=== PATIENT | female | born 1975 | race Caucasian/White ===

== ENCOUNTER 2016-08-18 20:48 | Emergency (ER) | payer OTHER ==
[~2016-08-18] VITALS: Ht 149.9 cm; Wt 59.5 kg
[2016-08-18 20:53] VITALS: Ht 149.9 cm; Wt 59.5 kg
[2016-08-18 21:29] LABS: URINE BLOOD (Dip) POC 3+ (NEGATIVE)
[2016-08-18 22:14] LABS: UR RBC > 182 /HPF (0-5); UR SQUAMOUS EPITHELIAL CELL MANY /HPF (FEW)
[2016-08-18 22:32] LABS: ADD UMIC YES; UR ASCORBIC ACID 40 mg/dL (NEGATIVE); UR BILIRUBIN (Dip) NEGATIVE (NEGATIVE); UR BLOOD (Dip) 3+ mg/dL (NEGATIVE); UR CLARITY TURBID (CLEAR); UR COLOR AMBER (YELLOW); UR GLUCOSE (Dip) 1+ mg/dL (NEGATIVE); UR KETONES (Dip) TRACE mg/dL (NEGATIVE); UR LEUKOCYTE ESTERASE (Dip) NEGATIVE Leu/ul (NEGATIVE); UR MUCUS MANY /HPF (NONE SEEN); UR NITRITE (Dip) NEGATIVE (NEGATIVE); UR SPECIFIC GRAVITY (Dip) 1.027 (1.003-1.030); UR TOTAL PROTEIN (Dip) 2+ mg/dl (NEGATIVE); UR UROBILINOGEN (Dip) NEGATIVE (NEGATIVE)
[2016-08-18 23:09] LABS: ADD SCAN DIFF NO
[2016-08-18 23:11] LABS: BASOPHILS % 0.5 % (0.0-2.0); EOSINOPHILS # 0.8 10^3/ul (0.0-0.5); EOSINOPHILS % 10.6 % (0.0-7.0); HEMATOCRIT 28.4 % (37.0-47.0); HEMOGLOBIN 8.9 g/dl (12.0-16.0); LYMPHOCYTES # 2.6 10^3/ul (0.8-2.9); LYMPHOCYTES % 33.2 % (15.0-51.0); MEAN CORPUSCULAR HEMOGLOBIN 28.3 pg (29.0-33.0); MEAN CORPUSCULAR HGB CONC 31.3 g/dl (32.0-37.0); MEAN CORPUSCULAR VOLUME 90.4 fl (82.0-101.0); MEAN PLATELET VOLUME 10.4 fl (7.4-10.4); MONOCYTE # 0.4 10^3/ul (0.3-0.9); MONOCYTES % 5.5 % (0.0-11.0); NEUTROPHIL # 3.9 10^3/ul (1.6-7.5); NEUTROPHILS % 49.9 % (39.0-77.0); PLATELET COUNT 374 10^3/UL (140-415); RED BLOOD COUNT 3.14 10^6/ul (4.20-5.40); RED CELL DISTRIBUTION WIDTH 15.1 % (11.5-14.5); WHITE BLOOD COUNT 7.8 10^3/ul (4.8-10.8)
--- NOTE | 2016-08-18 23:20 | RADRPT ---
PROCEDURE: US Pelvis. CLINICAL INDICATION: Vaginal bleeding TECHNIQUE: Multiple sonographic images of the pelvis were obtained utilizing a transabdominal and endovaginal technique. The images were reviewed on a PACS workstation. COMPARISON: None available FINDINGS: Uterus: Approximately 5 uterine leiomyomata are present. In the posterior uterine fundus of the int ramural leiomyoma measures 2.9 x 2.5 x 2.4 cm. In the anterior intrauterine corpus as the intramura l lesion measures 2.3 x 2.3 x 1.7 cm. In the posterior uterine corpus fibroid is approximately 2.1 x 1.6 x 1.6 cm. In the distal anterior lower uterine segment the leiomyoma appears intramural measu ring all 1.8 x 2.1 x 1.6 cm. The fifth fibroid is in the anterior left mid uterine corpus, submucos al and measuring 1.9 x 1.7 x 1.7 cm. Overall uterine size is estimated at 9.8 x 7.4 x 5.5 cm. Cervix: No abnormalities of significance are seen. Endometrium: Normal in thickness; 5.3 mm. Right ovary / adnexa: Normal in size estimated at 2.2 x 1.8 x 1.2 cm. No evidence for masses, norm al blood flow on Doppler interrogation. Left ovary/adnexa: Normal in size estimated at 2 x 2.3 x 1.3 cm. No evidence for solid masses, norm al blood flow on Doppler interrogation. Cul-de-sac: No evidence of free fluid. RPTAT:HJJR IMPRESSION: 1. Multiple uterine leiomyomata ranging in size from 1.8 cm up to 2.9 cm both intramural and submuco kala. 2. Normal endometrial thickness. 3. Sonographically normal ovaries and adnexa. Physician Ashwin Date Time Electronically viewed and signed by Physician Ashwin on 08/18/2016 23:19 JR/
[2016-08-18] MEDS ORDERED: PHEN-537 PO (23:39)
[2016-08-18] MEDS ORDERED: CIPR500T4 PO (23:39)
[2016-08-18] MEDS ORDERED: IBUP400T22 PO (23:40)
[2016-08-18 23:41] LABS: CALCIUM 8.9 mg/dl (8.4-10.2); CREATININE 0.67 mg/dl (0.44-1.00); POTASSIUM 3.8 mmol/L (3.5-5.1)
[2016-08-19 00:03] VITALS: BP 126/79; PULSE 74; RESP 14; TEMP 98.3
--- NOTE | 2016-08-19 00:19 | ERA ---
ER Documentation Chief Complaint Date/Time DATE: 08/19/16 TIME: 00:08 Chief Complaint vaginal bleeding x 1 month HPI This is a 41-year-old female who presents with a chief complaint of vaginal bleeding and lower abdominal pain. Patient's symptoms have persisted since the onset of her. 2 weeks ago. Patient describes the pain as pressure-like. Describes the bleeding as without chunks and worse when she urinates. Patient denies dysuria, vaginal discharge, foul odor, nausea, vomiting, diarrhea, constipation, flank pain, known , back pain, or similar symptoms in the past. ROS All systems reviewed and are negative except as per history of present illness. Medications Home Meds Active Scripts Ibuprofen* (Motrin*) 400 Mg Tab, 400 MG PO Q6, #30 TAB Prov:ILA CHICAS PA-C 08/18/16 Phenazopyridine Hcl* (Pyridium*) 100 Mg Tab, 100 MG PO TID Y for URINARY PAIN, # 8 TAB Prov:ILA CHICAS PA-C 08/18/16 Ciprofloxacin Hcl* (Ciprofloxacin Hcl*) 500 Mg Tablet, 500 MG PO BID for 14 Days , TAB Prov:ILA CHICAS PA-C 08/18/16 PMhx/Soc Medical and Surgical Hx: pt denies Medical Hx, pt denies Surgical Hx Hx Alcohol Use: No Hx Substance Use: No Hx Tobacco Use: No Smoking Status: Never smoker Physical Exam Vitals Vital Signs Date Time Temp Pulse Resp B/P Pulse Ox O2 Delivery O2 Flow Rate FiO2 08/19/16 00:03 98.3 74 14 126/79 100 Room Air 08/18/16 20:53 99.5 87 20 141/85 100 Physical Exam Const: Healthy-appearing. Well-nourished. Overweight. No acute distress. Head: Normocephalic, Atraumatic. No sinus tenderness. Eyes: Non-injected; No scleral erythema, discharge or foreign body. EOMI and YESI bilaterally. Ears: Normal External Ears, EACs clear, TM normal bilaterally without erythema. Nose: Normal nose without discharge, septal deviation, or sinus tenderness. Oral: No oral edema visualized. Mucous membranes moist and pink. Neck: No cervical lymphadenopathy, masses or goiter palpated. Full range of motion. Supple. Trachea midline. ~ No meningismus. Pulm: Good air movement in upper and lower respiratory tracts. No dyspnea, stridor, tripoding or drooling. Clear to auscultation bilaterally. Percussion unremarkable in all lung mehta bilaterally. Cardio: Regular rate and rhythm; No murmurs, gallops or rubs auscultated. No JVD grossly observed. Radial and posterior tibial pulses 2+ bilaterally. No cyanosis. Capillary refill less than 2 seconds. Abd: Mild suprapubic tenderness. Soft, non tender, non distended. No guarding, masses. Normal bowel sounds. No McBurney's point tenderness. MS: Normal motor strength, normal tone with gross examination. Skin: No petechiae or rashes. No ulcer, induration, jaundice. Good turgor. Back: No midline, flank or CVA tenderness. Ext: No cyanosis, or edema. Normal movement of all extremities grossly observed. Neur: Awake, alert and oriented x3. Neurovascularly intact bilaterally. Psych: Active and alert. Normal Mood and Affect. Oriented x3. Result Diagram: 08/18/16223908/18/160 Results 24 hrs Laboratory Tests Test 08/18/16 21:21 08/18/16 21:33 08/18/16 22:40 Urine Color KATY Urine Clarity TURBID Urine pH 6.0 Urine Specific [place] 1.027 Urine Ketones TRACEmg/dL Urine Nitrite NEGATIVEmg/dL Urine Bilirubin NEGATIVEmg/dL Urine Urobilinogen NEGATIVEmg/dL Urine Leukocyte Esterase NEGATIVELeu/ul Urine Microscopic RBC > 182/HPF Urine Microscopic WBC 79/HPF Urine Squamous Epithelial Cells MANY/HPF Urine Calcium Oxalate Crystals MANY/HPF Urine Mucus MANY/HPF Urine Hemoglobin 3+mg/dL Urine Glucose 1+mg/dL Urine Total Protein 2+mg/dl Bedside Urine pH (LAB) 5.0 Bedside Urine Protein (LAB) 3+ Bedside Urine Glucose (UA) Negative Bedside Urine Ketones (LAB) Trace Bedside Urine Blood 3+ Bedside Urine Nitrite (LAB) Positive Bedside Urine Leukocyte Esterase (L 3+ White Blood Count 7.810^3/ul Red Blood Count 3.1410^6/ul Hemoglobin 8.9g/dl Hematocrit 28.4% Mean Corpuscular Volume 90.4fl Mean Corpuscular Hemoglobin 28.3pg Mean Corpuscular Hemoglobin Concent 31.3g/dl Red Cell Distribution Width 15.1% Platelet Count 19065^3/UL Mean Platelet Volume 10.4fl Neutrophils % 49.9% Lymphocytes % 33.2% Monocytes % 5.5% Eosinophils % 10.6% Basophils % 0.5% Nucleated Red Blood Cells % 0.0/100WBC Neutrophils # 3.910^3/ul Lymphocytes # 2.610^3/ul Monocytes # 0.410^3/ul Eosinophils # 0.810^3/ul Basophils # 0.010^3/ul Nucleated Red Blood Cells # 0.010^3/ul Sodium Level 142mmol/L Potassium Level 3.8mmol/L Chloride Level 110mmol/L Carbon Dioxide Level 24mmol/L Anion Gap 12 Blood Urea Nitrogen 12mg/dl Creatinine 0.67mg/dl Glucose Level 104mg/dl Calcium Level 8.9mg/dl Procedures/MDM Patient was evaluated and worked up for abdominal discomfort. Patient denied any pain medications. The workup included CBC, BMP, urinalysis, test, lipase, and ultrasound. The ultrasound was read by the radiologist given the following impression: IMPRESSION: 1. Multiple uterine leiomyomata ranging in size from 1.8 cm up to 2.9 cm both intramural and submucosal. 2. Normal endometrial thickness. 3. Sonographically normal ovaries and adnexa. Urinalysis was remarkable for the following: Turbid, 3+ blood, 3+ nitrites, 3+ leukocyte esterase, 3+ calcium oxalate crystals, 79 microscopic white blood cell count. The current most likely diagnosis is hemorrhagic cystitis, calcium oxalate nephrolithiasis. The treatment plan will thus include outpatient antibiotics with Cipro twice daily 14 days and Flomax for facilitation of stone passage. I have reviewed these findings with Dr. Vasquez and he agrees with the assessment and plan. At this time I do not suspect appendicitis, ectopic , ovarian cyst, PID, intestinal ischemia, peritonitis, intestinal obstruction, perforated viscus, acute pancreatitis, cholelithiasis, cholangitis, GI mechanical obstruction, or AAA. On repeat exam, the abdominal exam remains unchanged. The patient is well appearing, and tolerates PO. I have spoke with the patient regarding their condition and future management. They have verbally responded that they understand their status and treatment plan. The patients vitals are stable, and their current condition is appropriate for discharge. The patient will be given discharge instructions with return precautions. Departure Diagnosis: Primary Impression: Urinary tract infection Qualified Code: N39.0 - Urinary tract infection with hematuria, site unspecified Condition: Stable Patient Instructions: Understanding Urinary Tract Infections (UTIs) Referrals: [facility], [facility] YOU HAVE RECEIVED A MEDICAL SCREENING EXAM AND THE RESULTS INDICATE THAT YOU DO NOT HAVE A CONDITION THAT REQUIRES URGENT TREATMENT IN THE EMERGENCY DEPARTMENT. FURTHER EVALUATION AND TREATMENT OF YOUR CONDITION CAN WAIT UNTIL YOU ARE SEEN IN YOUR DOCTORS OFFICE WITHIN THE NEXT 1-2 DAYS. IT IS YOUR RESPONSIBILITY TO MAKE AN APPOINTMENT FOR FOLOW-UP CARE. IF YOU HAVE A PRIMARY DOCTOR --you should call your primary doctor and schedule an appointment IF YOU DO NOT HAVE A PRIMARY DOCTOR YOU CAN CALL OUR PHYSICIAN REFERRAL HOTLINE AT IF YOU CAN NOT AFFORD TO SEE A PHYSICIAN YOU CAN CHOSE FROM THE FOLLOWING [facility] [address] [facility] [address] [facility] [address] [facility] [address] [facility] [address] [facility]. [facility] [address] [facility] [facility] YOU HAVE RECEIVED A MEDICAL SCREENING EXAM AND THE RESULTS INDICATE THAT YOU DO NOT HAVE A CONDITION THAT REQUIRES URGENT TREATMENT IN THE EMERGENCY DEPARTMENT. FURTHER EVALUATION AND TREATMENT OF YOUR CONDITION CAN WAIT UNTIL YOU ARE SEEN IN YOUR DOCTORS OFFICE WITHIN THE NEXT 1-2 DAYS. IT IS YOUR RESPONSIBILITY TO MAKE AN APPOINTMENT FOR FOLOW-UP CARE. IF YOU HAVE A PRIMARY DOCTOR --you should call your primary doctor and schedule and appointment IF YOU DO NOT HAVE A PRIMARY DOCTOR YOU CAN CALL OUR PHYSICIAN REFERRAL HOTLINE AT . IF YOU CAN NOT AFFORD TO SEE A PHYSICIAN YOU CAN CHOSE FROM THE FOLLOWING [facility] INSTITUTIONS: [facility] [address] [place] [address] [facility] [address] [place] [address] [facility] + [facility] [address] [place] [address] Additional Instructions: Follow up with your PCP within the next 1-3 days for a more thorough evaluation and a possible referral to a specialist. Return the the emergency department immediately if symptoms worsen or change. If you have any questions regarding medications, ask your pharmacist or us before you leave. If any adverse reactions occur while taking your medications, discontinue the treatment and return to the emergency department immediately. Take your medications as directed, and complete the entire course of treatment. ILA CHICAS PA-C Aug 19, 2016 00:19
== END 2016-08-19 00:07 | disposition home or self-care (01) ==
LOC: FTE 20:48
DX: N39.0 Urinary tract infection, site not specified (principal)
CPT/HCPCS: 36415; 76830; 76856; 80048; 81001; 85025; Z7502; 81003